=== PATIENT | female | born 1985 | race Caucasian/White ===

== ENCOUNTER 2019-09-21 08:11 | Emergency (ER) | payer MEDICAID, OTHER ==
[2019-09-21 08:23] VITALS: O2SAT 98
[2019-09-21] MEDS ORDERED: Fluor-I-Strip/Ful-Flo OP ONE ×2 (08:31→08:46)
[2019-09-21] MEDS ORDERED: TETRACAINE 0.5% STERI-UNIT SOL OP ONE (08:31)
--- NOTE | 2019-09-21 08:35 | ERPHSYRPT ---
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, she has flushed out the left eye Triage Nursing Assessment: pt walked in, resp easy, skin w/d/p, pt holding face with hand unable to assess the eye at this time Hx Influenza Vaccination/Date Given: No Hx Pneumococcal Vaccination/Date Given: No Immunizations Up to Date: Yes <MARLINE CHAN - Last Filed: 09/21/19 08:34> - History of Present Illness Timing/Duration: today Location: left eye Severity: moderate Apparent Injury: no Associated Symptoms: pain, burning, sensitivity to light, redness, foreign body sensation Visual Assistive Devices: None Chemical Exposure: No Trauma: No Welding Arc/Tanning Bed Exposure: No <MICHELLE ARCINIEGA - Last Filed: 09/21/19 09:25> - History of Present Illness Time Seen by Provider: 09/21/19 08:25 Physician History: 34 y/o white female (MARLINE CHAN) 34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 woke up in the early am. feels as though there is a fb present. does not recall a specific injury. thinks maybe a hair on the eye somewhere. no loss of vision. (MICHELLE ARCINIEGA) Allergies/Adverse Reactions: No Known Drug Allergies Allergy (Verified 09/21/19 08:23) - Review of Systems Constitutional: No Symptoms Eyes: Eye Pain, Eye Redness, Foreign Body Sensation, Other (sensitive to light) Ears, Nose, & Throat: No Symptoms Respiratory: No Symptoms Cardiac: No Symptoms Abdominal/Gastrointestinal: No Symptoms Genitourinary Symptoms: No Symptoms Musculoskeletal: No Symptoms Skin: No Symptoms Neurological: No Symptoms Psychological: No Symptoms Endocrine: No Symptoms Hematologic/Lymphatic: No Symptoms Immunological/Allergic: No Symptoms All Other Systems: Reviewed and Negative <MICHELLE ARCINIEGA - Last Filed: 09/21/19 09:25> - Past Medical History Pertinent Past Medical History: No - Past Surgical History Past Surgical History: Yes Gastrointestinal: Cholecystectomy Female Surgical History: Section Other Surgical History: TUMORS REMOVED FROM SMALL BOWEL - Social History Smoking Status: Current every day smoker Exposure to second hand smoke: Yes Drug Use: none Patient Lives Alone: No - Female History Hx Last Menstrual Period: current Hx Now: Yes <MARLINE CHAN - Last Filed: 09/21/19 08:34> - Past Medical History Neurological History: No Pertinent History ENT History: No Pertinent History Cardiac History: No Pertinent History Endocrine Medical History: No Pertinent History Musculoskeletal History: No Pertinent History GI Medical History: No Pertinent History History: No Pertinent History Psycho-Social History: No Pertinent History Female Reproductive Disorders: No Pertinent History - Past Surgical History Neuro Surgical History: No Pertinent History Cardiac: No Pertinent History Respiratory: No Pertinent History Genitourinary: No Pertinent History Musculoskeletal: No Pertinent History Female Surgical History: No Pertinent History <MICHELLE ARCINIEGA - Last Filed: 09/21/19 09:25> - Physical Exam SpO2: 98 <MARLINE CHAN - Last Filed: 09/21/19 08:34> - Physical Exam General Appearance: mild distress, alert, anxiety Eye Exam: right eye: normal inspection, left eye: corneal abrasion, bilateral eye: PERRL, EOMI Ears, Nose, Throat Exam: normal ENT inspection, moist mucous membranes Neck Exam: normal inspection, non-tender, supple, full range of motion Respiratory Exam: No chest tenderness Gastrointestinal Exam: No tenderness Extremity Exam: normal inspection, normal range of motion, pelvis stable Neurologic: alert, oriented x 3, cooperative, housing assistant II-XII nml as tested Skin Exam: normal color, warm, dry Lymphatic: No adenopathy SpO2 Interpretation: normal O2 Delivery: Room Air <MICHELLE ARCINIEGA - Last Filed: 09/21/19 09:25> - Nursing Vital Signs Nursing Vital Signs: Initial Vital Signs Temperature 98.3 F 09/21/19 08:16 Pulse Rate 84 09/21/19 08:16 Respiratory Rate 16 09/21/19 08:16 Blood Pressure 122/67 09/21/19 08:16 O2 Sat by Pulse Oximetry 98 09/21/19 08:16 Pain Scale Pain Intensity 6 - Course Nursing assessment & vital signs reviewed: Yes <MICHELLE ARCINIEGA - Last Filed: 09/21/19 09:25> Ordered Tests: Medication Summary Discontinued Medications Generic Name Dose Route Start Last Admin Trade Name Freq PRN Reason Stop Dose Admin Erythromycin 3.5 gm 09/21/19 08:56 Erythromycin 3.5 Gm Ophth. OP 09/21/19 08:57 STAT ONE Fluorescein Sodium Confirm 09/21/19 08:31 Qdwwu-M-Vqnkk/Ful-Maximiliano Administered 09/21/19 08:32 Dose 1 mg OP .STK-MED ONE Fluorescein Sodium 1 mg 09/21/19 08:46 09/21/19 08:47 Obdgv-W-Kdtdd/Ful-Maximiliano OP 09/21/19 08:47 1 mg STAT ONE Administration Tetracaine HCl Confirm 09/21/19 08:31 Tetracaine 0.5% Steri-Unit Nellie Administered 09/21/19 08:32 Dose 4 ml OP .STK-MED ONE Tetracaine HCl 4 ml 09/21/19 08:45 09/21/19 08:46 Tetracaine 0.5% Steri-Unit Nellie OP 09/21/19 08:46 4 ml STAT STA Administration <MARLINE CHAN - Last Filed: 09/21/19 08:34> - Progress Progress: improved, pain not gone completely, re-examined Counseled pt/family regarding: diagnosis, need for follow-up <MICHELLE ARCINIEGA - Last Filed: 09/21/19 09:25> - Progress Progress Note: 09/21/19 09:11 left eye- after tetracaine drops x3 and fluorescein. black light revealed corneal abrasion (MICHELLE ARCINIEGA) <MARLINE CHAN - Last Filed: 09/21/19 08:34> - Departure Departure Disposition: Home Critical Care Time: No <MICHELLE ARCINIEGA - Last Filed: 09/21/19 09:25> - Departure Clinical Impression: Corneal abrasion, left Condition: Stable Referrals: DOCTOR,NO FAMILY [Primary Care Provider] - Additional Instructions: use medications as prescribed. follow up with an ophthamologist for persistent symptoms or worsening symptoms. Prescriptions: Hydrocodone/APAP 5/325 [[place] 5/325 mg] 1 each PO Q8H PRN PRN #6 tablet MDD 3 PRN Reason: Pain Tobramycin/Dexamethasone [Tobradex Eye Drops] 2 drops OP Q6H #5 ml
[2019-09-21] MEDS ORDERED: TETRACAINE 0.5% STERI-UNIT SOL OP STA (08:45)
[2019-09-21] MEDS ORDERED: Erythromycin 3.5 GM OPHTH. OP ONE (08:56)
[2019-09-21] MEDS ORDERED: NORCO 5/325 MG PO ONE (08:59)
[2019-09-21] MEDS ORDERED: Erythromycin 1 GM ONE (09:17)
[2019-09-21 09:18] VITALS: BP 120/60; PULSE 82
[2019-09-21] MEDS ORDERED: NORCO 5/325 MG ONE (09:18)
[2019-09-21] MEDS ORDERED: Erythromycin 1 GM OP STA (09:20)
== END 2019-09-21 09:38 | disposition home or self-care (01) ==
LOC: ED 08:11
DX: S05.02XA Injury of conjunctiva and corneal abrasion without foreign body, left eye, initial encounter (principal)
CPT/HCPCS: 99283; A9270-GY